=== PATIENT | male | born 1995 | race African-American/Black ===

== ENCOUNTER 2025-02-26 08:42 | Emergency (ER) | payer MEDICAID, SELFPAY ==
[2025-02-26 08:45] VITALS: BP 125/70; PULSE 77; RESP 16; TEMP 36.7; O2SAT 98; BMI 29.7
[2025-02-26 08:53] VITALS: BP 125/78; PULSE 77; RESP 18; TEMP 36.8; O2SAT 98
--- NOTE | 2025-02-26 09:11 | ED.URI ---
HPI - URI/Sore Throat General Chief Complaint: Upper Respiratory Symptoms Stated Complaint: Headache Time Seen by Provider: 02/26/25 08:52 Source: patient and family Mode of arrival: ambulatory Limitations: no limitations History of Present Illness ED Provider: Lor Miranda PA-C HPI Narrative: Sebastián is a 29 y/o M with hx of asthma presents with two days of chills, diffuse body aches, and joint pain. Yesterday he ?sweated through? his clothes and believes he had a fever, though no temperature was checked. He denies rash, cough, nasal congestion, sore throat, vomiting, or diarrhea. Appetite remains ?decent.? He has taken no home medications for symptom relief and did not take any medications today. His daughter was sick with a cold before he became ill. He had COVID-19 in the past and feels this illness is different. Main reason for seeking care today is the severity of body aches. Related Data Allergies Allergy/AdvReac Type Severity Reaction Status Date / Time No Known Allergies Allergy Verified 02/26/25 08:48 Review of Systems Review of Systems: Yes all other systems are reviewed and are negative PMFSH Past Medical History Attestation statement: The following information was validated with the patient. Source: old records reviewed and nursing notes reviewed Social History Social History Advance Directives: No Advance Directives Information Provided: No Physical Exam Exam: Exam: General: Appears in no acute distress, appears well nourished body habitus is obese, appears stated age. No septic or ill-appearing. Vitals reviewed normal, PMH/Social and Surgical hx reviewed including allergies and current medications. - reviewed for prior visits here Head: Normocephalic, no obvious trauma or skin lesions noted. Eyes: EOMI, conjunctiva sclera clear ENMT: moist oral mucosa, uvula is midline no trismus no tonsillar edema erythema or exudate, Trace erythema or nasal cavity without any discharge nontender sinuses Neck: trachea midline, no lymphadenopathy Cardiovascular: peripheral perfusion normal, Regular heart rate regular rhythm, cap refill less than 3 seconds distal pulses 2+ no rashes on the skin no nuchal rigidity moving neck without any difficulty Respiratory: no respiratory distress lungs clear to auscultation bilaterally no use of accessory muscles Abdomen: nondistended, soft Extremities: warm and moving without difficulty Psych: Cooperative Neuro: Alert and oriented. Vital Signs: Vital Signs: Last Vital Signs Temp 98.2 F 02/26/25 09:27 Pulse 77 02/26/25 09:27 Resp 18 02/26/25 09:27 BP 125/78 02/26/25 09:27 Pulse Ox 98 02/26/25 09:27 O2 Del Method Room Air 02/26/25 09:27 BMI result Body Mass Index 29.7 Medications Administered Discontinued Medications Generic Name Dose Route Start Last Admin Trade Name Diogo PRN Reason Stop Dose Admin Acetaminophen 975 mg 02/26/25 09:14 02/26/25 09:24 Acetaminophen 325 Mg Tablet PO 02/26/25 09:15 975 mg ONCE ONE Administration Ibuprofen 600 mg 02/26/25 09:14 02/26/25 09:24 Ibuprofen 600 Mg Tablet PO 02/26/25 09:15 600 mg ONCE ONE Administration Medical Decision Making Medical Decision Making [facility] Narrative: Patient presents as an otherwise healthy adult with acute onset of systemic viral symptoms (subjective fever, chills, diffuse myalgias, arthralgias) without clinical evidence of bacterial infection or serious illness. Physical examination was unremarkable for focal bacterial sources including streptococcal pharyngitis, acute otitis media, and pneumonia. No tachycardia (heart rate 100 bpm), tachypnea (respiratory rate 24 breaths/min), or abnormal lung findings were present, making bacterial pneumonia unlikely in this immunocompetent patient. Differential diagnosis includes viral upper respiratory infection, influenza, and other respiratory viral pathogens, with recent sick contact (daughter with cold) supporting viral transmission. The presentation is consistent with influenza-like illness within the 48-hour treatment window. COVID-19 and influenza testing were obtained in the emergency department; both returned negative. The absence of respiratory symptoms (no cough, nasal congestion, or sore throat) is somewhat atypical but does not exclude viral etiology, as systemic symptoms can predominate early in illness. No clinical features suggesting serious bacterial infection requiring empiric antibiotic therapy were identified on examination. Patient is low risk for complications from viral respiratory infection. He is an immunocompetent adult without chronic cardiopulmonary disease, diabetes, or other conditions predisposing to severe influenza or viral illness complications. No signs of clinical deterioration, hypoxia, or secondary bacterial infection were present. Vital signs stable throughout emergency department evaluation. Symptomatic treatment with antipyretics (acetaminophen and ibuprofen) was provided and recommended for continued use at home for fever and myalgias. Patient was counseled on supportive care measures including adequate hydration, rest, and isolation from close contacts while symptomatic to prevent transmission, particularly given his partner. Work excuse provided with instructions to return to work once symptoms resolve. Patient was instructed on clear return precautions including worsening symptoms, development of respiratory distress, persistent high fever, or any clinical concerns warranting re-evaluation. Disposition: Discharge home with close outpatient follow-up. Patient will be contacted by phone with influenza test results. If influenza positive, risks and benefits of delayed antiviral therapy will be rediscussed, though efficacy diminishes significantly beyond 48 hours from symptom onset. Patient was informed of negative results. Differential Diagnosis Differential Diagnoses: The differential diagnosis associated with the presentation includes See [facility] Admission/Observation Consideration of admission/observation: Escalation of care including admission/observation considered Patient would have been admitted to the hospital had his work up had any findings where hospital admission was appropriate and his clinical presentation warranted hospital admission. Lab Data [facility] Lab Attestation statement: I reviewed the patient's lab results. Labs: Lab Results 02/26/25 Range/Units 09:23 Influenza Type A (PCR) NEGATIVE (Negative) Influenza Type B (PCR) NEGATIVE (Negative) RSV RNA Qual (PCR) NEGATIVE (Negative) SARS-CoV-2 RNA (RT-PCR) NEGATIVE (Negative) Independent Historian Clinical information obtained from an independent historian. History obtained from or confirmed by: Spouse Tests considered The following testing was considered but not selected: Would have consider chest x-ray had patient had any accessory lung sounds or abnormal vitals or complain of pleuritic pain Prescription Management I considered prescription management with: Antiviral (He has negative influenza this has not been given) Social Determinants Patient?s care significantly limited by Social Determinants of Health including: Other Social Determinant of Health Discharge Plan Discharge Clinical Impression: Viral infection Patient Disposition: Home, Self-Care Instructions: Viral Syndrome (ED) Additional Instructions: You were seen in the emergency department for your fever, cough, congestion, and muscle aches.? Your exam was reassuring. On exam there is no evidence of dehydration, middle or external ear infection strep throat tonsillitis pneumonia or bronchitis. Her lungs are clear to auscultation bilaterally. We have tested you for COVID flu and RSV these results are pending I will call her with the results. We discussed that if you are positive to influenza I will send a prescription for Tamiflu we also discussed that clinically this only shortness the course but 8-24 hours it does not treat her symptoms and once he will still be recommended to do [id number] measures such as below ? Rest, stay well hydrated. Take Tylenol and/or Motrin as needed for fever or muscle aches. Please be re-evaluated if you are not starting to feel better or if still having fevers after 5-7 days of illness You should avoid crowds, public places, school, hotels, elderly, infants, or people with compromised immune systems until 24 hours after your fevers stop and your symptoms are improved. Return to the ED if you develop a severe headache, neck stiffness, intractable vomiting, trouble breathing, shortness of breath, or any other new, concerning symptoms.? Referrals: Physician,None [Primary Care Provider, Medical] Stand Alone Forms: Work/School Release Interventions: ED Discharge Assessment Last Done: 02/26/25 09:27 Discharge Date/Time: 02/26/25 09:27 Print Language: Scottish
[2025-02-26 09:27] VITALS: BP 125/78; PULSE 77; RESP 18; TEMP 36.8; O2SAT 98
--- OUTSIDE RECORDS SUMMARY | 2025-02-26 09:41 | XMS_ITS | Clinical Summary ---
Author Organization [facility] Address [address] [place] [address] Care Team Providers Care Stamp Clerk Name Role Phone Unavailable Primary Care Provider Unavailabl e Social History Tobacco Use Types Packs/Day Years Used Date Smoking Tobacco: Never Assessed Sex and Gender Information Value Date Recorded Sex Assigned at Not on file Gender Identity Not on file Sexual Orientation Not on file Plan of Treatment Health Maintenance Due Date Last Done Comments Hepatitis B Vaccines (1 of 3 - 3-dose series) 1993 Hepatitis C Screening 1993 COVID-19 Vaccine (#1) 03/30/1994 Depression Screening 2005 Preventative Health Evaluation 09/29/2011 DTap / Tdap / Td (1 - Tdap) 2012 Influenza Vaccine (#1) 2024 Pneumococcal Vaccine Aged Out No long er eligible based on patient's age to complete this topic RSV Ped < 20 months Aged Out No longe r eligible based on patient's age to complete this topic
--- OUTSIDE RECORDS SUMMARY | 2025-02-26 09:41 | XMS_ITS | Clinical Summary ---
Author Organization [facility] Address [address] [place] [address] Care Team Providers Care Saw Edge Fuser Circular Name Role Phone Rani Michaels PA-C Primary Care Provider [phone] Source Comments PLEASE NOTE, if this patient is a minor, it may be UNLAWFUL to discuss sensitive information that is contained in these records (such as FAMILY PLANNING, MENTAL HEALTH or SUBSTANCE ABUSE) with the minor patient's parent or other person without the patient's specific authorization.LISSETTE Allergies Active Allergy Reactions Criticality Noted Date Comments Vancomycin 09/06/2021 Other reaction(s): Hives and pruritus Medications triamcinolone acetonide (KENALOG) 0.1 % ointmentIndicatio ns:Rash of hand Apply topically 2 (two) times daily 30 g 1 0 Active ibuprofen 600 mg tabletIndications :Right wrist pain Take 1 Tab by mouth 4 (four) times daily as needed for pain 40 Tab 0 Active cholecalciferol, vitamin D3, 25 mcg (1,000 unit) capsuleIndication s:Vitamin D deficiency Take 1 Capsule by mouth once daily 30 Capsule 2 1 Active carbamide peroxide (DEBROX) 6.5 % otic solutionIndicatio ns:Excessive ear wax, bilateral Place 5 Drops into both ears 2 (two) times daily 15 mL 1 Active cetirizine (ZYRTEC) 10 mg tabletIndications :Seasonal allergies Take 1 Tablet by mouth once daily 90 Tablet 2 Active fluticasone propionate (FLONASE) 50 mcg/actuation nasal sprayIndications: Seasonal allergies SHAKE LIQUID AND USE 1 SPRAY IN EACH NOSTRIL EVERY DAY 16 g 2 2 Active cyclobenzaprine (FLEXERIL) 10 mg tabletIndications :Acute midline low back pain without sciatica Take 1 Tablet by mouth nightly at bedtime as needed for muscle spasms 10 Tablet 3 Active albuterol HFA 90 mcg/actuation inhalerIndication s:Mild intermittent reactive airway disease without complication Inhale 2 Puffs into the lungs every 4 (four) hours as needed for shortness of breath or wheezing 18 g 2 5 Active clotrimazole (LOTRIMIN) 1 % creamIndications: Tinea pedis of both feet Apply topically 2 (two) times daily 15 g 1 5 Active benzonatate (TESSALON) 200 mg capsuleIndication s:URI, acute Take 1 Capsule by mouth 3 (three) times daily as needed for cough 30 Capsule 5 Active hydrOXYzine HCL (ATARAX) 50 mg tabletIndications :Trouble in sleeping Take 1-2 tablets nightly for sleep/anxiety as needed. 90 Tablet 1 5 Active butenafine (LOTRIMIN ULTRA) 1 % creamIndications: Tinea pedis of both feet,Tinea cruris Apply topically 2 (two) times daily. 30 g 1 5 Active fluconazole (DIFLUCAN) 150 mg tabletIndications :Tinea pedis of both feet,Tinea cruris Take 1 Tablet by mouth once weekly for 4 weeks. 4 Tablet 5 Active Active Problems Problem Noted Date Diagnosed Date ADHD 06/16/2017 Throat pain 06/16/2017 Overview (06/16/2017): [facility] 04/18/13 No tonsillar swelling or exudate. Likely viral URI. Strep considered but afebrile with unremarkable throat exam, so unlikely. Calf swelling 06/16/2017 Overview (06/16/2017): [facility] 11/16/12 Abscess/incision is healing very well but hast not closed yet. Cellulitis has completely resolved. He can ambulate with no pain, is eating and drinking fine, has no fever or other symptoms except for mild diarrhea. 11/09/12 Left calf swelling, tenderness and warmth concerning for cellulitis versus abscess versus pyomyositis. Paronychia of fifth toe, left 06/16/2017 Overview (06/16/2017): [facility] 08/10/10 Paronychia Otalgia of left ear 06/16/2017 Overview (06/16/2017): [facility] 08/10/10 Otalgia- no evidence of OM/dental etiology Costochondritis 06/16/2017 Overview (06/16/2017): [facility] 11/26/10 Costochondritis. Discussed use of NSAID'S. Reassured against cardiac pathology. Depression 06/16/2017 Overview (06/16/2017): [facility] 08/28/15 Major depression. No psychotic features. Scored 23 on PHQ-9, will initiate therapy with Wellbutrin given historic benefit for him. Anxiety 06/16/2017 Encounters Date Type Department Care Team Description 12/11/2024 8:40 AM EDT Telemedicine Visit [address] [address] Marie Lopez FNP-C from Last 3 Months Immunizations Immunization Administration Dates Next Due DTAP (DAPTACEL),5 PERTUSSIS ANTIGENS 01/1998,03/26/1998,02/07/1995,02/07,06/14/1994,06/14/1994,02/11/1994 ,02/11/1994,1993,1993 Flu, Preservative Free 04/11/2023,06/26/2020 HEP B, PED/ADOL ([id number]-A-CGFI/RECOMBIVAX-PEDS) 06/14/1994,06/14/1994,06/14/1994,12/12,1993,1993,1993 HPV, QUADRIVALENT 02/11/2013,02/11/2013 Hep B vaccine, adolescent/hi gh risk infant dosage 06/14/1994,1993,1993 Hib (PRP-T) 02/07/1995, 5,06/14/1994,06/14,02/11/1994,02/11/1994,1993 ,1993 INFLUENZA, SEASONAL, INJECTABLE 02/08/20 21,08/28/2015,08/28/2015,02/27,02/27/2014,02/11/2013,02/11/2013 IPV (IPOL) 03/26/1998, 8,02/07/1995,02/07,02/11/1994,02/11/1994,1993 ,1993 MENINGOCOCCAL MCV4P (MENACTRA) 01/01/2007,2006 MMR (MMR II/Priorix) 03/26/1998,03/26/19 98,02/07/1995,02/07 PNEUMOCOCCAL POLYSACCHARIDE PPV23 (Pneumovax 23) 06/26/2020 [employer] COVID-19 Vac cine Bivalent, (VELAZQUEZ PFIZER-ScrewpulpNTAppifier COVID-19 VACCINE BIVALENT, (VELAZQUEZ CAP 09/07/2022 TDAP 05/31/2017, 7,01/01/2007,01/01 Td (adult),2 Lf tetanus toxo id (TDVAX), preservative free 01/01/2007,01/01/2007,11/29/2004,11/29 Varicella (Varivax), Live Vaccine 2006,01/01/2007,03/18/1997,03/18 Social History Tobacco Use Types Packs/Day Years Used Date Smoking Tobacco: Former Smokeless Tobacco: Never Tobacco Cessation:Counseling Given: No Alcohol Use Standard Drinks/Week Comments Yes 0 (1 standard drink = 0.6 oz pur e alcohol) occassionally Social Connections Answer Date Recorded How often do you feel lonely or isolated from th ose around you? 1 07/10/2024 Financial Resource Strain Answer Date R ecorded Hard to pay for: Food 1 07/10/2024 Stress Answer Date Recorded Do you feel these kinds of stress these days? 1 07/10/2024 Physical Activity Answer Date Recorded Physical Activity 0 12/10/2018 Food Insecurity Answer Date Recorded Hard to pay for: Food 1 07/10/2024 Transportation Needs Answer Date Record ed Hard to pay for: Transportation 1 07/10/2024 Housing Stability Answer Date Recorded Hard to pay for: Rent/Mortgage payment 1 07/10/2024 Safety and Environment Answer Date Narinder rded Safety 0 09/06/2021 Utilities Answer Date Recorded Hard to pay for: Utilities 1 07/10 Employment Answer Date Recorded Employment 0 12/10/2018 Sex and Gender Information Value Date Recorded Sex Assigned at Male 05/31/2017 11:29 AM PST Legal Sex Male 6:02 AM PST Gender Identity Male 05/31/2017 11:29 AM PST Sexual Orientation Straight 05/31/2017 11 :29 AM PST Last Filed Vital Signs Vital Sign Reading Time Taken Comments Blood Pressure 124/90 04/11/2023 9:35 AM EST Pulse 95 04/11/2023 9:35 AM EST Temperature 36.3 C (97.4 F) 04/11/2023 9:35 AM EST Respiratory Rate 20 04/11/2023 9:35 AM EST Oxygen Saturation 98% 04/11/2023 9:35 AM EST Inhaled Oxygen Concentration - - Weight 86.6 kg (191 lb) 07/10/2024 7:52 AM EDT Height 167.6 cm (5' 6 ) 07/10/2024 7:52 AM EDT Body Mass Index 30.83 07/10/2024 7:52 AM EDT Plan of Treatment Health Maintenance Due Date Last Done Comments Imm-HPV (2 - Male 3-dose series) 03/11/2013 02/12/20 13, 02/11/2013 Imm-Pneumococcal (2 of 2 - PCV) 06/26/2021 Annual Wellness (Adult): Indicated (All Coverage) 09/03/2021 09/03/2020 Hypertension Screening (#1) 04/10/2024 Depression Monitoring 10/10/2024 07/10/2024 , 04/11/2023, 07/25/2022, Additional history exists [id number] ( season) 2024 09/07/2022, 09/13/2020, 08/23/2020 Imm-Influenza (#1) 2024 04/11/2023, 1 , 06/26/2020, Additional history exists Anxiety Screening 07/10/2025 07/10/2024 Tobacco Screening 07/15/2025 07/15/2024 Imm-DTaP/Tdap/Td (12 - Td or Tdap) 05/31/2027 05/31/2017, 01/01/2007, 01/01/2007, Additional history exists Lipid Screening 07/16/2027 07/15/2024, 07/16, 12/08/2020, Additional history exists Imm-RSV (adult) (1 - 1-dose 75+ series) 2068 Imm-Hepatitis B Completed 06/14/1994, 05/19, 06/14/1994, Additional history exists Hepatitis C Screening Completed 06/26/2020 Alcohol and Drug Screen Completed 07/11/19, 07/25/2022, 09/06/2021, Additional history exists HIV Screening Completed 07/15/2024, 06/26/2020 Syphilis Screening Discontinued 07/15/2024, 06/26/2020 Procedures Procedure Name Priority Date/Time Associated Diagnosis Comments HIV 1/2 AG & AB W/RFLX (4TH GEN) Routine 07/15/2024 10:31 AM EDT Routine screening for STI (sexually transmitted infection) RPR (DIAGNOSIS) WITH REFLEX TO TITER AND CONFIRMATORY TESTING Routine 07/15/2024 10:31 AM EDT Routine screening for STI (sexually transmitted infection) LIPID PANEL Routine 07/15/2024 10:31 AM EDT BMI 30.0-30.9,adult HEPATITIS C ANTIBODY Routine 06/26/2020 10:50 AM EST Need for hepatitis C screening test from Last 3 Months or Most Recently Relevant to Health Maintenance Results * RPR (DIAGNOSIS) WITH REFLEX TO TITER AND CONFIRMATORY TESTING (07/15/2024 10:31 AM EDT) RPR (DX) W/REFL TITER AND CONFIRMATORY TESTING NON-REACT BERNARDO NON-REACT BERNARDO [email or web address] Comment: No laboratory evidence of syphilis. If recent exposure is suspected, submit a new sample in 2-4 weeks. Serum Blood / Unknown 07/15/2024 1 0:31 AM EDT 07/15/2024 10:32 AM EDT Narrative [facility] [employer] - 07/16/2024 4:09 PM EDT FASTING:YES us Rani Michaels PA-C LAB - BLOOD DRAW Edited Resu lt - Final [employer] [address] [place] [id number], [email or web address] [address] [place] [id number] * HIV 1/2 AG & AB W/RFLX (4TH GEN) (07/15/2024 10:31 AM EDT) HIV AG/AB, 4TH GEN NON-REAC TIVE NON-REAC TIVE [email or web address] Comment: HIV-1 antigen and HIV-1/HIV-2 antibodies were not detected. There is no laboratory evidence of HIV infection. PLEASE NOTE: This information has been disclosed to you from records whose confidentiality may be protected by state law. If your state requires such protection, then the state law prohibits you from making any further disclosure of the information without the specific written consent of the person to whom it pertains, or as otherwise permitted by law. A general authorization for the release of medical or other information is NOT sufficient for this purpose. For additional information please refer to http://education.AmberPoint.RetailTower/faq/JUZ679 (This link is being provided for informational/ educational purposes only.) The performance of this assay has not been clinically validated in patients less than 2 years old. Blood Blood / Unknown 07/15/2024 1 0:31 AM EDT 07/15/2024 10:32 AM EDT Narrative [email or web address] - 07/16/2024 4:09 PM EDT FASTING:YES Rani HUTCHINSON-C LAB - BLOOD DRAW Final Resul t Performing Organization Address [facility] Co de Phone Number [email or web address] [address] [address], [email or web address] [address] [address] * (ABNORMAL) LIPID PANEL (07/15/2024 10:31 AM EDT) [facility] CHOLESTEROL, TOTAL 192 <200 mg/dL [email or web address] HDL CHOLESTEROL 67 > OR = 40 mg/dL [email or web address] TRIGLYCERIDES 67 <150 mg/dL [email or web address] LDL-CHOLESTEROL 110(H) 99 mg/dL (calc) [email or web address] Comment: Reference range: <100 Desirable range <100 mg/dL for primary prevention; <70 mg/dL for patients with CHD or diabetic patients with > or = 2 CHD risk factors. LDL-C is now calculated using the Uriel-Dejuan calculation, which is a validated novel method providing better accuracy than the Friedewald equation in the estimation of LDL-C. Uriel SS et al. CHONG. 2013;310(19): 2730-7001 (http://education.Selvz/faq/VBJ478) CHOL/HDLC RATIO 2.9 <5.0 (calc) [email or web address] NON-HDL CHOLESTEROL 125 <130 mg/dL (calc) [email or web address] Comment: For patients with diabetes plus 1 major ASCVD risk factor, treating to a non-HDL-C goal of <100 mg/dL (LDL-C of <70 mg/dL) is considered a therapeutic option. Blood Blood / Unknown 07/15/2024 1 0:31 AM EDT 07/15/2024 10:32 AM EDT Narrative [email or web address] - 07/16/2024 4:09 PM EDT FASTING:YES us Rani HUTCHINSON-C LAB - BLOOD DRAW Final Resul t Performing Organization Address City/[facility]/ZIP Co de Phone Number [email or web address] [address] [address], [email or web address] [address] [place] [address] * HEPATITIS C ANTIBODY (06/26/2020 10:50 AM EST) HEPATITIS C VIRUS SCREEN NEGATIVE NEGATIVE [facility] Blood Blood / Unknown 06/26/2020 1 0:50 AM EST 06/26/2020 10:50 AM EST Narrative [facility] - 06/26/2020 1:13 PM EST [email or web address], a member of [address] [address] Funeral Service Manager - Alana Peoples MD [place] [id number] ORD# [id number] us Rani Michaels PA-C LAB - BLOOD DRAW Final Resul t [facility] [address] [place] [address], from Last 3 Months or Most Recently Relevant to Health Maintenance Insurance [employer] Care Teams Saw Edge Fuser Circular Relationship Specialty Start Date End Date Rani Michaels PA-C [address] [place] [address] PCP - General FAMILY MEDICINEEVANGELINA 04/20/20
--- OUTSIDE RECORDS SUMMARY | 2025-02-26 09:41 | XMS_ITS | Clinical Summary ---
Author Organization [facility] Address [address] [facility] [address] [place] [address] Care Team Providers Care [employer] Name Role Phone Unavailable Primary Care Provider Unavailabl e Allergies No known active allergies Encounters Date Type Department Care Team Description 12/18/2024 Population Health Risk Score [facility] ([facility]) Department [address] [facility] [address] [place] [address] Provider, Population Health Generic from Last 3 Months Social History Tobacco Use Types Packs/Day Years Used Date Smoking Tobacco: Never Assessed Sex and Gender Information Value Date Recorded Sex Assigned at Male 07/23/2024 3:16 PM EDT Legal Sex Male 3:11 PM EDT Gender Identity Male 07/23/2024 3:16 PM EDT Sexual Orientation Straight 07/23/2024 3: 16 PM EDT Last Filed Vital Signs Vital Sign Reading Time Taken Comments Blood Pressure 134/83 07/23/2024 5:21 PM EDT Pulse 93 07/23/2024 5:21 PM EDT Temperature 36.6 C (97.8 F) 07/23/2024 5:21 PM EDT Respiratory Rate 17 07/23/2024 5:21 PM EDT Oxygen Saturation 98% 07/23/2024 5:21 PM EDT Inhaled Oxygen Concentration - - Weight 80.9 kg (178 lb 6.4 oz) 07/23/2024 5:21 P M EDT Height - - Body Mass Index - - Plan of Treatment Health Maintenance Due Date Last Done Comments Depression Screening 1993 SDOH Screening 1993 Disability Screening 1993 Alcohol/Substance Use Screening 2005 Tobacco Screening 2005 Family Planning (PISQ) 2008 Hepatitis C Screening 09/29/2011 HPV Vaccines (2 - Male 3-dose series) 03/11/2013 02/11/2013 Pneumococcal Vaccine: Pediatrics (0 to 5 Years) and At-Risk Patients (6 to 49) Years (2 of 2 - PCV) 06/26/2021 06/26/2020 COVID-19 Vaccine (4 - season) 2024 09/07/2022, 09/13/2020, 08/23/2020 Influenza Vaccine (#1) 2024 3, 02/07/2021, 06/26/2020, Additional history exists DTaP/Tdap/Td Vaccines (9 - Td or Tdap) 05/31/2027 05/31/2017, 01/01/2007, 01/01/2007, Additional history exists Zoster Vaccines (1 of 2) 09/29/2043 RSV Patients and Patients Aged 60 years or older (1 - 1-dose 75+ series) 2068 Hepatitis B Vaccines Completed 06/14/1994, 06/14/1994, 1993, Additional history exists HIB Vaccines Completed 02/07/1995, 05/19, 02/11/1994, Additional history exists IPV Vaccines Completed 03/26/1998, 01/16, 02/11/1994, Additional history exists Meningococcal Vaccine Aged Out 01/01/2007, 007 No longer eligible based on patient's age to complete this topic HIV Screening Completed 07/15/2024 Hepatitis A Vaccines Aged Out No long er eligible based on patient's age to complete this topic Meningococcal B Vaccine Aged Out No l onger eligible based on patient's age to complete this topic RSV under 20 months Aged Out No longe r eligible based on patient's age to complete this topic Rotavirus Vaccines Aged Out No longer eligible based on patient's age to complete this topic Insurance [facility] C[facility]
[2025-02-26 10:05] LABS: Resp Syncy Virus RNA Qual PCR NEGATIVE (Negative); SARS COV2 PCR INHOUSE NEGATIVE (Negative)
== END 2025-02-26 09:27 | disposition home or self-care (01) ==
PROVIDERS: Physician Assistant Medical; Emergency Provider Emergency Medicine
DX: B34.9 Viral infection, unspecified (principal); J45.909 Unspecified asthma, uncomplicated
CPT/HCPCS: 87637; 99283